=== PATIENT | female | born 1965 | race Hispanic/Latino ===

== ENCOUNTER 2020-09-04 20:37 | Emergency (ER) | payer BC ==
[~2020-09-04] VITALS: Ht 157.5 cm; Wt 88.5 kg
[2020-09-04] MEDS ORDERED: DEXAMETHASONE SOD PHOS 10 MG/1 ML VIAL IM STA (20:51)
[2020-09-04] MEDS ORDERED: ACETAMINOPHEN 325 MG TAB PO ONE (21:00)
[2020-09-04] MEDS ORDERED: KETOROLAC TROMETHAMINE 60 MG/2 ML VIAL IM ONE (21:00)
[2020-09-04 21:39] LABS: ABG PH 7.47 (7.35-7.45)
[2020-09-04 21:40] LABS: ABG HCO3 24 mmol/L (22-26); ABG PCO2 32 mmHg (35-45); ABG PO2 27 mmHg (80-105); ABG TCO2 24
[2020-09-04 22:26] VITALS: BP 146/78
== END 2020-09-04 22:28 | disposition home or self-care (01) ==
LOC: ER 20:53
DX: J18.9 Pneumonia, unspecified organism (principal); R50.9 Fever, unspecified; B34.9 Viral infection, unspecified; R06.02 Shortness of breath; R53.81 Other malaise
CPT/HCPCS: 36415; 71045; 82805; 93005; 99283; J1100; J1885